=== PATIENT | female | born 1960 | race Caucasian/White ===

== ENCOUNTER → 2017-07-22 | Outpatient (CLI) | payer BC ==
[~2017-07-22] MED LIST: ASPIRIN E.C. 8181 MG PO; B12; CARDI-OMEGA1000 MG PO; COZAAR100 MG PO; GLUCOPHAGE850 MG/TAB PO; LISINOPRIL10 MG PO; METFORMIN HCL500 M1 PO; NATURE'S BLEND500 M1; NORCO 325 MG-51 TAB PO; OMNICEF 300MG300 MG PO; PERCOCET 5/321 UDTAB PO; ZOCOR 10MG10 MG PO; ZOFRAN 4MG T4 MG/TAB PO; [UNRECOGNIZED DRUG - OTHER] PO
== END ==
LOC: MC.RAD 07:06
DX: Z12.31 Encounter for screening mammogram for malignant neoplasm of breast (principal)

== ENCOUNTER → 2018-12-24 | Outpatient (CLI) | payer BC | LOC: MC.RAD 09:33 | DX: Z12.31 Encounter for screening mammogram for malignant neoplasm of breast (principal) ==

== ENCOUNTER → 2020-04-04 | Outpatient (CLI) | payer BC | LOC: MC.RAD 07:49 | DX: Z12.31 Encounter for screening mammogram for malignant neoplasm of breast (principal) ==

== ENCOUNTER → 2021-07-30 | Outpatient (CLI) | payer BC | LOC: MC.RAD 07:34 | DX: Z12.31 Encounter for screening mammogram for malignant neoplasm of breast (principal); Z00.00 Encounter for general adult medical examination without abnormal findings ==

== ENCOUNTER → 2021-12-04 | Outpatient (CLI) | payer BC | LOC: COL.RAD 08:39 | DX: M51.34 Other intervertebral disc degeneration, thoracic region (principal); M51.24 Other intervertebral disc displacement, thoracic region; M47.814 Spondylosis without myelopathy or radiculopathy, thoracic region; M48.04 Spinal stenosis, thoracic region; M50.30 Other cervical disc degeneration, unspecified cervical region; M25.78 Osteophyte, vertebrae; M48.02 Spinal stenosis, cervical region ==